=== PATIENT | male | born 1970 | race Caucasian/White ===

== ENCOUNTER → 2018-05-08 11:37 | Outpatient (CLI) | payer BC, SELFPAY ==
--- NOTE | 2018-05-08 11:49 | XR_ITS ---
XR shoulder RT min 2V HISTORY: ITS.REASON: RT SHOULDER PAIN ORDERING PHYSICIAN: Dilan Langley MD PATIENT AGE: 48 years Comparison: None FINDINGS: No fracture or dislocation. No lytic or blastic change. There is normal mineralization. The joint spaces are well-preserved. No significant degenerative/arthritic changes. No erosive changes evident. There are mild hypertrophic changes of the distal clavicle superiorly and the acromion inferiorly with mild subacromial stenosis.. IMPRESSION: 1. Mild acromioclavicular hypertrophic change with subacromial stenosis 2. Otherwise negative
== END ==
PROVIDERS: Visit Provider Family Medicine
DX: M25.511 Pain in right shoulder (principal)
CPT/HCPCS: 73030

== ENCOUNTER → 2019-12-22 10:29 | Outpatient (CLI) | payer BC, SELFPAY ==
[2019-12-22 10:31] LABS: Microscopic, Urine URINE MICROSCOPIC (MICROSCOPIC)
[2019-12-22 11:35] LABS: Basophils % 0.2 % (0.1-2.0); Eosinophils # 0.2 K/mm3 (0.0-0.4); Eosinophils % 3.3 % (0.1-12.0); Hematocrit 46.2 % (42.0-52.0); Hemoglobin 15.1 g/dL (14.1-18.0); Lymphocytes # 1.1 K/mm3 (0.7-4.5); Lymphocytes % 23.7 % (10-50); Mean Corpuscular HGB Conc 32.7 g/dL (31.8-35.4); Mean Corpuscular Hemoglobin 28.5 pg (27.0-31.2); Mean Corpuscular Volume 87.1 fl (80-94); Mean Platelet Volume 8.3 fl (7.4-10.4); Monocytes # 0.2 K/mm3 (0.1-1.0); Monocytes % 4.3 % (1.7-9.3); Neutrophils # 3.1 K/mm3 (1.8-7.8); Neutrophils % 68.5 % (37.0-80.0); Platelet Count 146 K/mm3 (142-424); White Blood Count 4.5 K/mm3 (4.8-10.8)
[2019-12-22 11:41] LABS: Appearance,Urine CLEAR (Clear); Bilirubin,Urine Negative (Negative); Blood, Urine Negative (Negative); Color,Urine YELLOW (Yellow); Glucose,Urine (UA) Negative (Negative); Ketones,Urine Negative (Negative); Leukocyte Esterase,Urine Negative (Negative); Nitrate,Urine Negative (Negative); Protein,Urine Negative (Negative); Urobilinogen,Urine 0.2 EU/dl (0.2)
[2019-12-22 11:57] LABS: Squamous Epithelial Cell,Urine Occasional #/hpf (0-5); WBC,Urine Occasional #/hpf (0-3)
[2019-12-22 12:32] LABS: Chloride 105 mmol/L (98-107); Potassium 4.6 mmoL/L (3.5-5.1); Sodium 142 mmol/L (136-145)
[2019-12-22 12:35] LABS: Anion Gap 13.6 mEq/L (5-15); Blood Urea Nitrogen 17 mg/dl (9-20); Carbon Dioxide 28 mmol/L (22.0-30.0); Estimated Glomerular Filt Rate 71 ml/min (>60); GFR (African American) 86 ML/MIN (>60); Glucose 74 mg/dl (74-100)
== END ==
PROVIDERS: Visit Provider Surgery
DX: K40.90 Unilateral inguinal hernia, without obstruction or gangrene, not specified as recurrent (principal)
CPT/HCPCS: 36415; 80048; 81001; 85025

== ENCOUNTER → 2020-03-08 09:42 | Outpatient (CLI) | payer BC, SELFPAY ==
[2020-03-08 08:43] VITALS: BMI 25.0
[2020-03-08 09:56] LABS: Microscopic, Urine URINE MICROSCOPIC (MICROSCOPIC)
[2020-03-08 10:10] LABS: Basophils # 0.1 K/mm3 (0-0.2); Basophils % 2.2 % (0.1-2.0); Eosinophils # 0.2 K/mm3 (0.0-0.4); Eosinophils % 3.3 % (0.1-12.0); Hematocrit 48.4 % (42.0-52.0); Hemoglobin 15.9 g/dL (14.1-18.0); Lymphocytes # 1.1 K/mm3 (0.7-4.5); Lymphocytes % 22.6 % (10-50); Mean Corpuscular Hemoglobin 29.2 pg (27.0-31.2); Mean Corpuscular Volume 88.6 fl (80-94); Mean Platelet Volume 8.8 fl (7.4-10.4); Monocytes # 0.3 K/mm3 (0.1-1.0); Monocytes % 6.1 % (1.7-9.3); Neutrophils # 3.1 K/mm3 (1.8-7.8); Neutrophils % 65.9 % (37.0-80.0); Platelet Count 129 K/mm3 (142-424); Red Blood Count 5.46 M/mm3 (4.60-6.20); Red Cell Distribution Width 13.8 % (11.5-17.5); White Blood Count 4.8 K/mm3 (4.8-10.8)
[2020-03-08 10:39] LABS: Appearance,Urine CLEAR (Clear); Bilirubin,Urine Negative (Negative); Blood, Urine Negative (Negative); Color,Urine YELLOW (Yellow); Glucose,Urine (UA) Negative (Negative); Ketones,Urine Negative (Negative); Leukocyte Esterase,Urine Negative (Negative); Nitrate,Urine Negative (Negative); PH,Urine 6.5 (5.0-8.5); Protein,Urine Negative (Negative); Specific Gravity, Urine <= 1.005 (1.005-1.030); Urobilinogen,Urine 0.2 EU/dl (0.2)
[2020-03-08 10:53] LABS: RBC,Urine Occasional #/hpf (0-3); Squamous Epithelial Cell,Urine Occasional #/hpf (0-5)
[2020-03-08 11:04] LABS: Anion Gap 8.9 mEq/L (5-15); Blood Urea Nitrogen 14 mg/dl (9-20); Calcium 9.4 mg/dl (8.4-10.2); Carbon Dioxide 32 mmol/L (22.0-30.0); Chloride 100 mmol/L (98-107); Creatinine Clearance Estimated 105 mL/min (50-200); Estimated Glomerular Filt Rate 90 ml/min (>60); GFR (African American) 109 ML/MIN (>60); Glucose 90 mg/dl (74-100); Potassium 4.9 mmoL/L (3.5-5.1); Sodium 136 mmol/L (136-145)
[2020-03-09 15:06] LABS: Covid-19 Nasal PCR Sendout Lex NOT DETECTED
== END ==
PROVIDERS: Visit Provider Surgery
DX: Z01.818 Encounter for other preprocedural examination (principal); K40.90 Unilateral inguinal hernia, without obstruction or gangrene, not specified as recurrent
CPT/HCPCS: 36415; 80048; 81001; 85025; U0003

== ENCOUNTER 2020-03-10 10:17 | Day surgery (SDC) | payer BC, SELFPAY ==
--- NOTE | 2020-03-06 12:48 | SUR.PREOP ---
03/06/20 @ 8221--PHONE CALL MADE TO PATIENT. PATIENT UNDERSTANDS THAT LAB WORK AND COVID TESTING NEEDS TO BE COMPLETED @ 0930 ON 03/08/20. PATIENT UNDERSTANDS IF LAB WORK AND COVID-19 TESTS ARE NOT COMPLETED BY 12PM ON THAT DATE, THE SURGERY SCHEDULED WILL BE CANCELLED AND RESCHEDULED FOR ANOTHER TIME.
[2020-03-09 08:35] VITALS: BMI 25.0
[2020-03-10] VITALS (11 sets, daily range): BP systolic 102–137; BP diastolic 69–82; PULSE 42–52; RESP 12–20; TEMP 36.4–43; O2SAT 95–99
--- NOTE | 2020-03-10 10:48 | ECG_ITS ---
APPROVED REPORT Exam: Resting ECG HR:40 bpm ECG Measurements Heart Rate 40 AXES NE 174 P 46 QRSd 98 QRS -48 QT 488 T -21 QTc 397 <Conclusion> Marked sinus bradycardia Left anterior fascicular block Abnormal ECG Electronically signed by : Soham Caba, 03/10/2020 11:25:06
--- NOTE | 2020-03-10 12:19 | P.PN_ITS ---
[facility] Anesthesia Checklist - Patient Identification Patient Identification: Arm Band, Verbal (Name & ) - Structural Data Admitted From: Home Planned Operative Procedure/s: Right open inguinal hernia repair Consent for Planned Operative Procedure(s) Verified: Yes Verified Documents: Surgical Consent, History and Physical - NPO Status Verified Time NPO: 00:00 - Chart Verification Results Verified: CBC (Negative for COVID19), BMP, UA - Additional verifications Anesthesia Reactions: No Hx Blood Transfusions: No Blood Transfusion Reaction: No - Airway Assessment C-Spine Mobility Assessed: Yes TMJ Mobility Assessed: Yes Dentition: Good Dentition - Neurological Assessment Level of Consciousness: Awake, Alert, Appropriate, Follows Commands Hx Seizures: No Numbness or tingling in extremities: No - Anesthesia Plan Anesthesia Risk discussed: Yes Anesthesia Plan: Verified ASA Class: II Anesthesia Type: General [facility] History I have reviewed the patient's past medical history: Yes Medical History: Reports:: Hypertension Denies:: Cancer, Diabetes Mellitus Type 1, Diabetes Mellitus Type 2, Internal Pacemaker, MRSA, Seizures *Have you ever received a pneumonia vaccine?: No *Have you received a flu vaccine this season?: Yes Other Medical History: Denies: Blood Transfusion Reaction Anesthesia experience/problems:: none Other Surgeries: Yes: Other (wisdom teeth). No: Pacemaker Amputation: No Fractures: No - *Social History Educational Level: Completed Graduate School Smoking Status: Never smoker Alcohol Intake: current Alcohol Intake Frequency:: a few times a month Substance Use Type: denies use *Occupational Status:: employed Housing: house *Travel in the last 8 weeks: None Family Hx:: Cancer, Coronary Artery Disease, Heart Attack, Hypertension, Stroke
--- NOTE | 2020-03-10 13:58 | P.OP_ITS ---
Date of procedure: 03/10/20 Pre-op Diagnosis:: Right inguinal hernia Post-op Diagnosis:: Same Procedure performed:: Open repair of right inguinal hernia Surgeon:: Ubaldo Washington MD Exposure Machine Operator(s):: Anny CARRIER DRIVER:: Rupert Bar Anesthesia: GETA Estimated blood loss (mL): 15 Operative findings:: Direct defect PerFix plug/mesh overlay placed Operative note:: After informed consent was obtained the patient was taken to the operating room and placed in the supine position. General anesthesia was induced and his lower abdomen and groin/scrotum were prepped and draped in a sterile fashion. After infiltration of local anesthetic an oblique right groin incision was made. The deep subcutaneous tissue was transected with electrocautery through Jorge's fascia to the level of the external aponeurosis. The external aponeurosis was sharply opened with Metzenbaum scissors to the level of the external ring. The contents of the canal were carefully elevated. No definitive evidence of indirect defect noted. An obvious direct defect was clearly evident. A PerFix plug was secured in the defect with interrupted Ethibond. The PerFix overlay was fixed to the shelving edge inferiorly and fascial margin superiorly with interrupted Ethibond suture. The external aponeurosis was reapproximated with running Vicryl suture. Jorge's fascia was reapproximated in a similar manner. Skin was then closed with 4-0 Monocryl in a running subcuticular fashion. Steri-Strips were applied. The patient's anesthetic agents were reversed and he was extubated prior to transfer to recovery. Condition: stable Disposition: PACU Specimens:: None Complications:: No immediate
--- NOTE | 2020-03-10 14:09 | HMH.ANESI ---
[facility] Anesthesia Record Part I Intake, IV Amount: 1,200 Estimated blood loss (mL): 5 Urine output (mL): 100 Blood Products used (#): none Blood Pressure: 115/73 SaO2: 95 Pulse Rate: 49 Respiratory Rate: 12 Temperature: 97.6 F Patient is:: Awake, Drowsy, Stable Stable to PACU at:: 14:05
--- NOTE | 2020-03-10 14:36 | PC.NURSE ---
1432-detailed report called to NANCI Vazquez 1435-pt transported to post op via stretcher with zeferino rails up and left in care of NANCI Vazquez with bed locked in lowest position, vss, pt stable
[2020-03-10 15:13] LABS: Microscopic,Cath URINE MICROSCOPIC (MICROSCOPIC)
[2020-03-10 15:24] LABS: Appearance,Urine/Cath CLEAR (Clear); Bilirubin,Cath Negative (Negative); Blood, Urine/Cath Negative (Negative); Color,Urine/Cath YELLOW (Yellow); Glucose,Urine/Cath (UA) Negative (Negative); Ketones,Urine/Cath Negative (Negative); Leukocyte Esterase,Cath Negative (Negative); Nitrate,Cath Negative (Negative); PH,Urine/Cath 6.5 (5.0-8.5); Protein,Urine/Cath Negative (Negative); Urobilinogen,Cath 0.2 EU/dl (0.2)
[2020-03-10 16:14] LABS: RBC,Urine/Cath Occasional # /hpf (0-3)
--- NOTE | 2020-03-10 16:47 | HMH.ANESII ---
[facility] Anesthesia Record Part II Discharge Time: 14:35 Destination: Surgical Day Care (OP Surgery) PACU nurse assessment reviewed?: Yes Patient Condition:: Good Anesthesia Complications:: None Swallowing reflex intact?: Yes Cyanosis?: No Blood Pressure: 119/80 Pulse Rate: 48 Temperature: 97.7 F Mental Status: Alert & Oriented Pain level:: 0 Nausea and/or vomitting:: None Intake, IV Amount: 0
== END 2020-03-10 15:10 | disposition home or self-care (01) ==
LOC: OR 10:18
PROVIDERS: PCP Family Medicine; Visit Provider Surgery
PROC: (CPT 49505; principal; 2020-03-10 10:15)
DX: K40.90 Unilateral inguinal hernia, without obstruction or gangrene, not specified as recurrent (principal); I10 Essential (primary) hypertension
CPT/HCPCS: 49505; 81001; 93005; 96374; J1610; J2405

== ENCOUNTER → 2020-07-15 10:00 | Outpatient (CLI) | payer BC, SELFPAY ==
[2020-07-15 12:23] LABS: Coronavirus 19 IgM Antibody Negative (Negative)
[2020-07-15 12:31] LABS: Coronavirus 19 IgG Antibody Positive (Negative)
== END ==
PROVIDERS: Visit Provider Internal Medicine Gastroenterology
DX: Z01.818 Encounter for other preprocedural examination (principal); Z12.11 Encounter for screening for malignant neoplasm of colon
CPT/HCPCS: 36415; 86328

== ENCOUNTER 2020-07-17 10:54 | Day surgery (SDC) | payer BC, SELFPAY ==
[2020-07-11 15:02] VITALS: BMI 22.8
[2020-07-17 11:22] VITALS: BP 140/65; PULSE 40; RESP 16; TEMP 36.4; O2SAT 99
[2020-07-17 12:48] VITALS: O2SAT 97
--- NOTE | 2020-07-17 13:12 | P.PN_ITS ---
[facility] Anesthesia Checklist - Structural Data Admitted From: Home Planned Operative Procedure/s: colonoscopy Consent for Planned Operative Procedure(s) Verified: Yes - Additional verifications Anesthesia Reactions: No Hx Blood Transfusions: No Blood Transfusion Reaction: No - Airway Assessment C-Spine Mobility Assessed: Yes TMJ Mobility Assessed: Yes Dentition: Good Dentition - Neurological Assessment Level of Consciousness: Awake, Alert, Appropriate - Anesthesia Plan Anesthesia Risk discussed: Yes Anesthesia Plan: Verified ASA Class: II Anesthesia Type: MAC [facility] History I have reviewed the patient's past medical history: Yes Medical History: Reports:: Hypertension Denies:: Cancer, Diabetes Mellitus Type 1, Diabetes Mellitus Type 2, Internal Pacemaker, MRSA, Seizures *Have you ever received a pneumonia vaccine?: No *Have you received a flu vaccine this season?: Yes Other Medical History: Denies: Blood Transfusion Reaction Anesthesia experience/problems:: none Other Surgeries: Yes: Hernia Repair, Other (wisdom teeth). No: Pacemaker Amputation: No Fractures: No - *Social History Last grade of school completed: Advanced degree Smoking Status: Never smoker Alcohol Intake: current Alcohol Intake Frequency:: a few times a week Substance Use Type: denies use *Occupational Status:: employed Housing: house Household Members: children *Travel in the last 8 weeks: None Family Hx:: Coronary Artery Disease, Hypertension
--- NOTE | 2020-07-17 13:14 | P.PCN_ITS ---
[facility] Procedure Note Procedure Note:: Colonoscopy Procedure Report: Colonoscopy with cold snare polypectomy Endoscopist: Cas Rodriguez II, MD Referring physician: Dilan Langley MD Date of Procedure: July 17, 2020 Equipment: Olympus 180 variable stiffness pediatric colonoscope Sedation: MAC sedation Indication: Mr. Milan is a 50-year-old gentleman who is here for initial screening colonoscopy. He reports no abdominal pain, weight loss, change in his bowel habits or rectal bleeding. He reports no family history of colon cancer. Procedure: Prior to the procedure, a history and physical exam was performed, and patient's medications and allergies were reviewed. The risks, benefits and alternatives of the sedation and procedure were discussed with the patient. All questions were answered and informed consent was obtained. The patient was brought to the procedure room. Patient identification and proposed procedure were verified by the physician and the nurse. The patient was placed in a left lateral decubitus position and the scope was passed under direct vision. Throughout the procedure, the patient's blood pressure, pulse, and oxygen saturations were monitored continuously. The colonoscopy was accomplished without difficulty. The patient tolerated the procedure well. Findings: On digital rectal examination there was normal rectal tone. There were no external hemorrhoids. The prostate was mildly firm but symmetric without nodules. The colonoscope was introduced through the anal canal to the rectum and advanced to the cecum. The ileocecal valve and appendiceal orifice were identified. The scope was advanced a short distance into the ileum which appeared grossly normal. The scope was then withdrawn into the colon. The cecum was normal. There were 2 polyps in the ascending colon (2 and 5 mm) which were both removed via cold snare polypectomy. The remaining ascending and transverse colon and mucosa were grossly normal. There were scattered diverticuli throughout the descending and sigmoid colon (LEFT colon). The rectum itself was normal. Upon retroflexion within the rectum there were grade 1-2 internal hemorrhoids. The preparation was excellent throughout with Rainelle Preparation Score of 9. The cecal time was 12 minutes. Impression: 1. Diminutive colonic polyps x2 2. Left-sided diverticulosis 3. Grade 1-2 internal hemorrhoids Plan: I will follow up the polyp pathology and recommend repeat colonoscopy again in 7-10 years based upon the polyp histology. I would encourage fiber supplementation on a long-term daily maintenance basis.
[2020-07-17 13:20] VITALS: BP 102/51; PULSE 50; RESP 18; TEMP 36.1; O2SAT 98
[2020-07-17 13:28] VITALS: BP 101/52; PULSE 42; RESP 18; O2SAT 99
[2020-07-17 13:40] VITALS: BP 140/76; PULSE 52; RESP 18; O2SAT 95
[2020-07-17 14:15] VITALS: BP 152/87; PULSE 41; RESP 18; O2SAT 94
== END 2020-07-17 14:15 | disposition home or self-care (01) ==
LOC: OUTP 10:56
PROVIDERS: PCP Family Medicine; Visit Provider Internal Medicine Gastroenterology
PROC: 0DJD8ZZ Inspection of Lower Intestinal Tract, Via Natural or Artificial Opening Endoscopic (ICD-10-PCS; CPT 45378; principal; 2020-07-17 12:00)
DX: Z12.11 Encounter for screening for malignant neoplasm of colon (principal); K63.5 Polyp of colon; K57.30 Diverticulosis of large intestine without perforation or abscess without bleeding; K64.0 First degree hemorrhoids; I10 Essential (primary) hypertension; Z82.49 Family history of ischemic heart disease and other diseases of the circulatory system; Z72.89 Other problems related to lifestyle; Z79.899 Other long term (current) drug therapy
CPT/HCPCS: 45385